=== PATIENT | male | born 1960 | race Caucasian/White ===

== ENCOUNTER 2019-12-29 12:07 | Emergency (ER) | payer BC ==
[~2019-12-29] VITALS: Ht 172.7 cm; Wt 67.6 kg
[2019-12-29 12:13] VITALS: Ht 172.7 cm; Wt 67.6 kg
[2019-12-29 13:57] VITALS: BP 104/52
== END 2019-12-29 13:57 | disposition home or self-care (01) ==
LOC: ED 12:07
DX: S29.8XXA Other specified injuries of thorax, initial encounter (principal); S21.90XA Unspecified open wound of unspecified part of thorax, initial encounter; W22.8XXA Striking against or struck by other objects, initial encounter; Y93.89 Activity, other specified; Y92.89 Other specified places as the place of occurrence of the external cause; Y99.8 Other external cause status; I12.0 Hypertensive chronic kidney disease with stage 5 chronic kidney disease or end stage renal disease; N18.6 End stage renal disease; Z99.2 Dependence on renal dialysis
CPT/HCPCS: Q0092

== ENCOUNTER 2020-01-09 13:36 | Emergency (ER) | payer BC ==
[~2020-01-09] VITALS: Ht 172.7 cm; Wt 68.0 kg
[2020-01-09 14:18] VITALS: Ht 172.7 cm; Wt 68.0 kg
[2020-01-09 16:44] VITALS: BP 108/58
== END 2020-01-09 16:44 | disposition home or self-care (01) ==
LOC: ED 13:36
DX: S22.41XA Multiple fractures of ribs, right side, initial encounter for closed fracture (principal); I10 Essential (primary) hypertension; E11.9 Type 2 diabetes mellitus without complications; Z98.890 Other specified postprocedural states; W01.0XXA Fall on same level from slipping, tripping and stumbling without subsequent striking against object, initial encounter; Y93.89 Activity, other specified; Y92.89 Other specified places as the place of occurrence of the external cause; Y99.8 Other external cause status
CPT/HCPCS: J1885